=== PATIENT | male | born 1985 | race African-American/Black ===

== ENCOUNTER 2021-01-16 15:21 | Emergency (ER) | payer MEDICARE, MEDICAID | END 2021-01-16 20:14 | disposition home or self-care (01) | LOC: CSHERS 15:21 | DX: G89.29 Other chronic pain (principal); B20 Human immunodeficiency virus [HIV] disease; Z87.891 Personal history of nicotine dependence; Z79.899 Other long term (current) drug therapy | CPT/HCPCS: 72100 ==